=== PATIENT | female | born 1955 | race Caucasian/White ===

== ENCOUNTER → 2016-11-10 | Outpatient (CLI) | payer BC ==
[2015-10-27 09:45] VITALS: BP 88/44
[~2016-11-10] MED LIST: MULT-658 PO
--- NOTE | 2016-11-10 13:35 | KCIC ---
PROCEDURE CT head without contrast. HISTORY Headache and numbness in left arm lasting for an hour 2 days ago, symptoms have resolved. TECHNIQUE Noncontrast CT imaging was performed of the head. Exposure: One or more of the following individualized dose reduction techniques were utilized for this exam: 1. Automated exposure control. 2. Adjustment of the mA and/or kV according to patient size. 3. Use of iterative reconstruction technique. Contrast: None COMPARISON None FINDINGS No acute intracranial hemorrhage is identified. Cooper-white differentiation of the major vascular territories is preserved. There is no intra-axial mass effect, midline shift, or extra-axial fluid collection. Visualized paranasal sinuses and mastoid air cells are aerated. No acute calvarial abnormality is identified. IMPRESSION No acute intracranial abnormality is identified by CT. If there is suspicion for evolving or acute ischemia, followup CT or MRI may be beneficial. Electronically signed by: Jonathon De Leon MD (Nov 10, 2016 13:33:10)
== END | disposition home or self-care (01) ==
LOC: KCIC CT 12:39
PROVIDERS: ATTEND Family Medicine
DX: R51 Headache (principal); R20.0 Anesthesia of skin
CPT/HCPCS: 70450